=== PATIENT | male | born 1945 | race Caucasian/White ===

== ENCOUNTER 2020-12-06 13:48 | Observation (INO) ==
[2020-12-06 14:36] LABS: Basophils # 0.1 10*3/uL (0.0-0.2); Eosinophils # 0.2 10*3/uL (0.0-0.87); Hematocrit 42.7 VOL% (42.0-52.0); Hemoglobin 14.6 GM/DL (14.0-18.0); Immature Granulocytes % 0.3 %; Immature Granulocytes Absolute 0.02 #; Lymphocytes # 2.5 10*3/uL (1.4-4.0); Lymphocytes % 40.4 % (21.2-54.2); Mean Corpuscular HGB Conc 34.2 GM/DL (32-36); Mean Corpuscular Volume 82.4 FL (87-102); Mean Platelet Volume 8.8 FL (9.6-12.0); Monocytes % 8.4 % (1.7-12.7); Neutrophils % 46.9 % (38.7-73.9); Platelet Count 205 T/CUMM (130-400); Red Blood Count 5.18 MC/CUMM (3.8-5.5); Red Cell Distribution Width 13.2 % (9.3-17.3); White Blood Count 6.3 T/CUMM (4-12)
[2020-12-06 15:38] LABS: INR 1.1; PT Patient Result 11.4 SECS (9.8-11.9)
[2020-12-06 15:39] LABS: Bacteria,Urine Occasional /HPF (Few); Bilirubin,Urine Negative (Negative); Blood, Urine Negative (Negative); Glucose,Urine (UA) Negative (Negative); Hyaline Casts,Urine 1 /LPF (0-3); Ketones,Urine Negative (Negative); Mucus,Urine Many /LPF (Occasional); Nitrite,Urine Negative (Negative); Protein,Urine Negative; RBC,Urine 3 /HPF (0-4); Urine Appearance Slightly Hazy (Clear); Urine Color Yellow (Yellow); Urine Specific Gravity 1.013 (1.001-1.035); Urine Urobilinogen < 2.0 EU/DL (0.2-1.0); WBC,Urine 161 /HPF (0-6)
[2020-12-06] MEDS ORDERED: LABETALOL 20 MG/4 ML SYRINGE IV PRN (15:46)
[2020-12-06] MEDS ORDERED: GLUCAGON 1 MG VIAL IM PRN (15:52)
[2020-12-06] MEDS ORDERED: DEXTROSE 50% 25 GM/50 ML VIAL IV PRN (15:52)
[2020-12-06] MEDS: SODIUM CHLORIDE 0.9% 1,000 ML IV SCH (16:30)
[2020-12-06 17:24] LABS: Albumin 3.9 G/DL (3.4-5.0); Bilirubin,Total 0.4 MG/DL (0.2-1.0); Calcium 9.2 MG/DL (8.5-10.1); Osmolality,Calculated 274.7 MOS/KG (273-304); Potassium 3.8 MMOL/L (3.5-5.1); Risk Ratio 5.43; Total Protein 8.2 G/DL (5.0-7.5); VLDL CHOLESTEROL 63.8 MG/DL
[2020-12-06] MEDS: cefTRIAXone 1,000 MG VIAL IM SCH ×2 (17:54→21:00)
[2020-12-07 05:46] LABS: Calcium 8.7 MG/DL (8.5-10.1); Osmolality,Calculated 280.1 MOS/KG (273-304); Potassium 3.5 MMOL/L (3.5-5.1)
[2020-12-07] MEDS: SODIUM CHLORIDE 0.9% 1,000 ML IV SCH (06:13)
[2020-12-07] MEDS: cefTRIAXone 1,000 MG VIAL IM SCH (15:31)
[2020-12-07 15:52] VITALS: BP 157/94
== END 2020-12-07 17:30 | disposition home health service (06) ==
LOC: N.4E 13:48 → N.ED 13:48 → N.4E 17:29
PROVIDERS: ADMIT Internal Medicine; ATTEND Internal Medicine